=== PATIENT | male | born 1950 | race Caucasian/White ===

== ENCOUNTER 2019-09-25 11:55 | Emergency (ER) | payer MEDICARE ==
[~2019-09-25] VITALS: Ht 175.3 cm; Wt 95.5 kg
[~2019-09-25 11:55] MED LIST: AMIO200T PO; ASPI-515 PO; LEVO75TA5 PO; METO25TA35 PO; PANT40TA3 PO; RIVA20TA PO; TADA5TAB2 PO; [UNRECOGNIZED DRUG - OTHER]
[2019-09-25] MEDS ORDERED: SODIUM CHLORIDE FLUSH 10ML SYR IVF ONE (12:30)
[2019-09-25 12:51] LABS: BASOPHILS # (AUTO) 0.04 x10^3/uL (0-0.1); BASOPHILS % (AUTO) 1 % (0-1); EOSINOPHILS # (AUTO) 0.32 x10^3/uL (0-0.4); EOSINOPHILS % (AUTO) 5 % (1-7); LYMPHOCYTES # (AUTO) 2.04 x10^3/uL (1-3.4); LYMPHOCYTES % (AUTO) 31 % (22-44); MD NO; MEAN CORPUSCULAR HEMOGLOBIN 32.2 pg (27.5-34.5); MEAN CORPUSCULAR HGB CONC 32.9 g/dL (33.2-36.2); MEAN CORPUSCULAR VOLUME 97.8 fL (81-97); MONOCYTES % (AUTO) 11 % (2-9); NEUTROPHILS # (AUTO) 3.45 x10^3/uL (1.8-6.8); NEUTROPHILS % (AUTO) 53 % (42-75); PLATELET COUNT 196 x10^3/uL (130-400); RED BLOOD COUNT 4.47 x10^6/uL (4.38-5.82); RED CELL DISTRIBUTION WIDTH 13.7 % (9.4-14.8)
--- NOTE | 2019-09-25 12:53 | NUR ---
PT CAME IN CO OF CHEST PAIN THAT STARTED AROUND 2 WEEKS AGO HE SAID. AT FIRST HE THOUGHT THAT HE HAD STRAINED A MUSCLE IN THE GYM BUT TIME WENT ON HE THOUGHT THAT IT MAY BE HIS HEART. PT IS IN HOSPITAL BED. IS BEDSIDE.
[2019-09-25 12:56] VITALS: BP 131/80
[2019-09-25 12:56] LABS: ALBUMIN 3.4 g/dL (3.4-5.0); ANION GAP 6 mmol/L (5-15); CALCIUM 8.1 mg/dL (8.5-10.1); CHLORIDE 111 mmol/L (98-107); CREATININE 0.91 mg/dL (0.7-1.3)
[2019-09-25 13:01] LABS: FREE T4 (FREE THYROXINE) 1.37 ng/dL (0.76-1.46); TROPONIN I < 0.015 ng/mL (0.000-0.045)
== END 2019-09-25 14:15 | disposition home or self-care (01) ==
LOC: ED 13:31
DX: S16.1XXA Strain of muscle, fascia and tendon at neck level, initial encounter (principal); G89.29 Other chronic pain; M47.892 Other spondylosis, cervical region; I10 Essential (primary) hypertension; R07.9 Chest pain, unspecified; I48.91 Unspecified atrial fibrillation; E07.9 Disorder of thyroid, unspecified
CPT/HCPCS: 36415; 71045; 72050; 80048; 82040; 83880; 84439; 84443; 84484; 85025; 93005; 99284